=== PATIENT | female | born 1980 | race Caucasian/White ===

== ENCOUNTER 2016-11-10 18:13 | Emergency (ER) | payer OTHER ==
[~2016-11-10] VITALS: Ht 157.5 cm; Wt 83.0 kg
[2016-11-10 18:43] VITALS: BP 134/82
== END 2016-11-10 20:54 | disposition home or self-care (01) ==
LOC: ED 18:13
DX: O26.892 Other specified pregnancy related conditions, second trimester (principal); S80.01XA Contusion of right knee, initial encounter; S00.81XA Abrasion of other part of head, initial encounter; Z3A.16 16 weeks gestation of pregnancy; W01.0XXA Fall on same level from slipping, tripping and stumbling without subsequent striking against object, initial encounter; Y93.89 Activity, other specified; Y92.89 Other specified places as the place of occurrence of the external cause; Y99.8 Other external cause status

== ENCOUNTER 2017-06-15 19:19 | Emergency (ER) | payer MEDICAID ==
[2017-06-15 20:37] LABS: BASOPHIL % 0.6 % (0-2); PLATELET COUNT 381 x10^3mcL (130-400); RED CELL DISTRIBUTION WIDTH 12.3 % (11.5-14.5)
[2017-06-15 20:48] LABS: CALCIUM 8.4 mg/dL (8.5-10.1); CHLORIDE SERUM 103 mmol/L (98-107); CREATININE SERUM 0.6 mg/dL (0.6-1.0); GFR1 > 60 mL/min; GLUCOSE SERUM 123 mg/dL (74-106); POTASSIUM SERUM 3.4 mmol/L (3.5-5.1); SODIUM SERUM 139 mmol/L (136-145)
[2017-06-15 20:59] LABS: ALKALINE PHOSPHATASE 71 U/L (46-116); ALT/SGPT 13 U/L (14-59); AST/SGOT 11 U/L (15-37); BILIRUBIN TOTAL 0.3 mg/dL (0.20-1.00); TOTAL PROTEIN, SERUM 7.4 g/dL (6.4-8.2)
[2017-06-15 21:06] LABS: ALBUMIN 3.2 g/dL (3.4-5.0)
[2017-06-15 21:56] VITALS: BP 141/83
== END 2017-06-15 21:56 | disposition home or self-care (01) ==
LOC: ED 19:19
PROVIDERS: Emergency Medicine
DX: F45.8 Other somatoform disorders (principal); R07.89 Other chest pain
CPT/HCPCS: 36600; 83880; J1885

== ENCOUNTER 2017-11-28 19:01 | Emergency (ER) | payer MEDICAID ==
[~2017-11-28] VITALS: Ht 157.5 cm; Wt 85.7 kg
[2017-11-28 19:11] VITALS: Ht 157.5 cm; Wt 85.7 kg
[2017-11-28 20:40] LABS: BASOPHIL % 0.4 % (0-2); PLATELET COUNT 348 x10^3mcL (130-400); RED CELL DISTRIBUTION WIDTH 12.7 % (11.5-14.5)
[2017-11-28 20:45] LABS: CALCIUM 8.7 mg/dL (8.5-10.1); CHLORIDE SERUM 99 mmol/L (98-107); CREATININE SERUM 0.6 mg/dL (0.6-1.0); GFR1 > 60 mL/min; GLUCOSE SERUM 278 mg/dL (74-106); POTASSIUM SERUM 3.8 mmol/L (3.5-5.1); SODIUM SERUM 133 mmol/L (136-145)
[2017-11-28 20:49] LABS: ALKALINE PHOSPHATASE 102 U/L (46-116); ALT/SGPT 26 U/L (14-59); AST/SGOT 44 U/L (15-37); BILIRUBIN TOTAL 0.26 mg/dL (0.20-1.00); LIPASE 159 IU/L (73-393); TOTAL PROTEIN, SERUM 7.2 g/dL (6.4-8.2)
[2017-11-28 21:00] LABS: ALBUMIN 3.3 g/dL (3.4-5.0)
[2017-11-28 23:38] VITALS: BP 131/79
== END 2017-11-28 23:38 | disposition home or self-care (01) ==
LOC: ED 19:01
PROVIDERS: Emergency Medicine
DX: R10.32 Left lower quadrant pain (principal)
CPT/HCPCS: J2270; J2405; Q9967

== ENCOUNTER 2018-01-07 18:53 | Emergency (ER) | payer MEDICAID ==
[~2018-01-07] VITALS: Ht 157.5 cm; Wt 82.1 kg
[2018-01-07 19:07] VITALS: Ht 157.5 cm; Wt 82.1 kg
[2018-01-07 20:24] LABS: microscopic required? YES; urine erythrocyte TRACE (NEGATIVE)
[2018-01-07 21:19] VITALS: BP 133/79
== END 2018-01-07 21:19 | disposition home or self-care (01) ==
LOC: ED 18:53
PROVIDERS: Emergency Medicine
DX: N39.0 Urinary tract infection, site not specified (principal); M54.9 Dorsalgia, unspecified
CPT/HCPCS: J1885

== ENCOUNTER 2018-05-11 17:19 | Emergency (ER) | payer MEDICAID ==
[~2018-05-11] VITALS: Ht 157.5 cm; Wt 77.1 kg
[2018-05-11 17:25] VITALS: Ht 157.5 cm; Wt 77.1 kg
[2018-05-11 20:07] LABS: BASOPHIL % 0.2 % (0-2); RED CELL DISTRIBUTION WIDTH 12.4 % (11.5-14.5)
[2018-05-11 20:11] LABS: PLATELET COUNT 406 x10^3mcL (130-400)
[2018-05-11 20:14] LABS: CALCIUM 8.3 mg/dL (8.5-10.1); CARBON DIOXIDE 26.4 mmol/L (21-32); CHLORIDE SERUM 108 mmol/L (98-107); CREATININE SERUM 0.6 mg/dL (0.6-1.0); GFR1 > 60 mL/min; GLUCOSE SERUM 133 mg/dL (74-106); POTASSIUM SERUM 3.3 mmol/L (3.5-5.1); SODIUM SERUM 144 mmol/L (136-145)
[2018-05-11 20:20] LABS: ALBUMIN 3.6 g/dL (3.4-5.0); ALKALINE PHOSPHATASE 96 U/L (46-116); ALT/SGPT 27 U/L (14-59); AST/SGOT 59 U/L (15-37); BILIRUBIN TOTAL 0.56 mg/dL (0.20-1.00); LIPASE 135 IU/L (73-393); TOTAL PROTEIN, SERUM 8.1 g/dL (6.4-8.2)
[2018-05-11 21:06] VITALS: BP 124/77
== END 2018-05-11 21:06 | disposition home or self-care (01) ==
LOC: ED 17:19
PROVIDERS: Emergency Medicine
DX: R10.9 Unspecified abdominal pain (principal); R07.89 Other chest pain; R11.2 Nausea with vomiting, unspecified; E11.9 Type 2 diabetes mellitus without complications
CPT/HCPCS: J1885; J2405; J7030

== ENCOUNTER 2018-05-16 16:05 | Inpatient (IN) | payer MEDICAID ==
[~2018-05-16] VITALS: Ht 157.5 cm; Wt 75.8 kg
[2018-05-16 16:06] VITALS: Ht 157.5 cm; Wt 75.8 kg
[2018-05-16 17:22] LABS: BASOPHIL % 0.2 % (0-2); PLATELET COUNT 491 x10^3mcL (130-400); RED CELL DISTRIBUTION WIDTH 13.3 % (11.5-14.5)
[2018-05-16 17:27] LABS: CALCIUM 9.2 mg/dL (8.5-10.1); CARBON DIOXIDE 20.7 mmol/L (21-32); CHLORIDE SERUM 99 mmol/L (98-107); CREATININE SERUM 0.6 mg/dL (0.6-1.0); GFR1 > 60 mL/min; GLUCOSE SERUM 144 mg/dL (74-106); POTASSIUM SERUM 3.1 mmol/L (3.5-5.1); SODIUM SERUM 137 mmol/L (136-145)
[2018-05-16 17:32] LABS: ALBUMIN 4.1 g/dL (3.4-5.0); ALKALINE PHOSPHATASE 286 U/L (46-116); BILIRUBIN TOTAL 8.4 mg/dL (0.20-1.00)
[2018-05-16 17:58] LABS: ALT/SGPT 125 U/L (14-59); AST/SGOT 110 U/L (15-37)
[2018-05-16 18:24] LABS: TOTAL PROTEIN, SERUM 8.8 g/dL (6.4-8.2)
[2018-05-16 18:46] LABS: LIPASE 37453 IU/L (73-393)
[2018-05-16] MEDS ORDERED: ZOF4 PO (19:09)
[2018-05-16] MEDS ORDERED: MOT400 PO (19:10)
[2018-05-16] MEDS ORDERED: NORCO1 TA2 PO (19:10)
[2018-05-16 20:06] VITALS: BP 138/90
[2018-05-17 05:29] VITALS: BP 115/68
[2018-05-17 06:29] LABS: ALKALINE PHOSPHATASE 220 U/L (46-116); ALT/SGPT 92 U/L (14-59); AST/SGOT 50 U/L (15-37); BILIRUBIN TOTAL 2.3 mg/dL (0.20-1.00); CALCIUM 7.9 mg/dL (8.5-10.1); CARBON DIOXIDE 23.5 mmol/L (21-32); CHLORIDE SERUM 104 mmol/L (98-107); CREATININE SERUM 0.5 mg/dL (0.6-1.0); GFR1 > 60 mL/min; GLUCOSE SERUM 124 mg/dL (74-106); POTASSIUM SERUM 3.5 mmol/L (3.5-5.1); SODIUM SERUM 137 mmol/L (136-145)
[2018-05-17 06:42] LABS: ALBUMIN 3.1 g/dL (3.4-5.0)
[2018-05-17 07:32] LABS: BASOPHIL % 0.3 % (0-2); PLATELET COUNT 373 x10^3mcL (130-400); RED CELL DISTRIBUTION WIDTH 13.7 % (11.5-14.5)
[2018-05-17 07:51] LABS: LIPASE 5129 IU/L (73-393)
[2018-05-17 10:11] VITALS: BP 137/95
[2018-05-17 14:14] VITALS: BP 127/92
[2018-05-17 17:14] VITALS: BP 134/80
[2018-05-17 19:20] VITALS: BP 125/84
[2018-05-18 05:38] VITALS: BP 125/83
[2018-05-18 09:26] VITALS: BP 113/69
[2018-05-18 11:06] LABS: BASOPHIL % 0.3 % (0-2); PLATELET COUNT 344 x10^3mcL (130-400); RED CELL DISTRIBUTION WIDTH 13.1 % (11.5-14.5)
[2018-05-18 11:17] LABS: ALKALINE PHOSPHATASE 182 U/L (46-116); ALT/SGPT 65 U/L (14-59); AST/SGOT 24 U/L (15-37); BILIRUBIN TOTAL 1.39 mg/dL (0.20-1.00); CALCIUM 7.7 mg/dL (8.5-10.1); CARBON DIOXIDE 28.5 mmol/L (21-32); CHLORIDE SERUM 103 mmol/L (98-107); CREATININE SERUM 0.5 mg/dL (0.6-1.0); GFR1 > 60 mL/min; GLUCOSE SERUM 113 mg/dL (74-106); POTASSIUM SERUM 3.4 mmol/L (3.5-5.1); SODIUM SERUM 139 mmol/L (136-145); TOTAL PROTEIN, SERUM 6.8 g/dL (6.4-8.2)
[2018-05-18 11:20] LABS: ALBUMIN 3.1 g/dL (3.4-5.0)
[2018-05-18 13:46] VITALS: BP 155/87
[2018-05-18 17:16] VITALS: BP 122/67
[2018-05-18 19:30] VITALS: BP 134/82
[2018-05-19 06:01] VITALS: BP 119/79
[2018-05-19 06:43] LABS: ALKALINE PHOSPHATASE 166 U/L (46-116); ALT/SGPT 44 U/L (14-59); AST/SGOT 18 U/L (15-37); BILIRUBIN TOTAL 1.29 mg/dL (0.20-1.00); CALCIUM 8.6 mg/dL (8.5-10.1); CARBON DIOXIDE 28.5 mmol/L (21-32); CHLORIDE SERUM 104 mmol/L (98-107); CREATININE SERUM 0.5 mg/dL (0.6-1.0); GFR1 > 60 mL/min; GLUCOSE SERUM 111 mg/dL (74-106); POTASSIUM SERUM 3.4 mmol/L (3.5-5.1); SODIUM SERUM 139 mmol/L (136-145)
[2018-05-19 06:50] LABS: BASOPHIL % 0.3 % (0-2); PLATELET COUNT 344 x10^3mcL (130-400); RED CELL DISTRIBUTION WIDTH 13.4 % (11.5-14.5)
[2018-05-19 09:57] VITALS: BP 122/76
[2018-05-19 13:01] VITALS: BP 121/64
[2018-05-19 15:22] VITALS: BP 153/91
[2018-05-19 19:01] LABS: BILIRUBIN DIRECT 0.79 mg/dL (0.0-0.2); BILIRUBIN TOTAL 1.3 mg/dL (0.20-1.00); TOTAL PROTEIN, SERUM 7.9 g/dL (6.4-8.2)
[2018-05-19 19:04] LABS: ALBUMIN 3.1 g/dL (3.4-5.0)
[2018-05-19 19:49] VITALS: BP 141/78
[2018-05-20 05:06] VITALS: BP 126/69
[2018-05-20 07:16] LABS: BASOPHIL % 0.2 % (0-2); RED CELL DISTRIBUTION WIDTH 13.1 % (11.5-14.5)
[2018-05-20 07:20] LABS: ALKALINE PHOSPHATASE 166 U/L (46-116); ALT/SGPT 42 U/L (14-59); AST/SGOT 27 U/L (15-37); BILIRUBIN TOTAL 1.09 mg/dL (0.20-1.00); CALCIUM 8.2 mg/dL (8.5-10.1); CARBON DIOXIDE 24.3 mmol/L (21-32); CHLORIDE SERUM 102 mmol/L (98-107); CREATININE SERUM 0.6 mg/dL (0.6-1.0); GFR1 > 60 mL/min; GLUCOSE SERUM 165 mg/dL (74-106); POTASSIUM SERUM 3.6 mmol/L (3.5-5.1); SODIUM SERUM 135 mmol/L (136-145)
[2018-05-20 07:21] LABS: ALBUMIN 3.3 g/dL (3.4-5.0)
[2018-05-20 07:25] LABS: PLATELET COUNT 428 x10^3mcL (130-400)
[2018-05-20 09:18] VITALS: BP 148/86
[2018-05-20 13:27] VITALS: BP 141/85
[2018-05-20 17:11] VITALS: BP 123/76
[2018-05-20 20:46] VITALS: BP 1147/76; BP 134/82
[2018-05-21 05:30] VITALS: BP 128/79
[2018-05-21 09:13] VITALS: BP 125/74
[2018-05-21 12:50] VITALS: BP 121/70
[2018-05-21 16:01] VITALS: BP 121/70
[2018-05-21 16:25] VITALS: BP 136/82
== END 2018-05-21 17:01 | disposition home or self-care (01) | DRG 710 ==
LOC: ED 16:05 → DU 19:03
PROVIDERS: Emergency Medicine; Internal Medicine; Internal Medicine Gastroenterology; Surgery
PROC: BF10YZZ Fluoroscopy of Bile Ducts using Other Contrast (ICD-10-PCS; principal; 2018-05-17 15:00)
PROC: BF141ZZ Fluoroscopy of Gallbladder, Bile Ducts and Pancreatic Ducts using Low Osmolar Contrast (ICD-10-PCS; 2018-05-17 15:00)
PROC: 0FT44ZZ Resection of Gallbladder, Percutaneous Endoscopic Approach (ICD-10-PCS; 2018-05-19)
DX: A41.9 Sepsis, unspecified organism (principal); K85.10 Biliary acute pancreatitis without necrosis or infection; K65.9 Peritonitis, unspecified; K80.50 Calculus of bile duct without cholangitis or cholecystitis without obstruction; E11.9 Type 2 diabetes mellitus without complications; K57.30 Diverticulosis of large intestine without perforation or abscess without bleeding; E87.6 Hypokalemia; N83.201 Unspecified ovarian cyst, right side; Z79.4 Long term (current) use of insulin; Z68.38 Body mass index [BMI] 38.0-38.9, adult
CPT/HCPCS: 43262; 82962; 94150; C1769; C2617; C2625; C9113; J0330; J1170; J1610; J2250; J2270; J2405; J2543; J2704; J2710; J3010; J3480; J3490; J7030; J7040; J7120; Q0092; Q9967